=== PATIENT | male | born 1970 | race Caucasian/White ===

== ENCOUNTER → 2017-09-02 | Outpatient (CLI) | payer BC ==
[2013-05-26 10:00] VITALS: BP 112/53
[~2017-09-02] MED LIST: LANTUS100 U/ML SQ; NOVOLIN R100 U/ML; [UNRECOGNIZED DRUG - OTHER]
== END ==
LOC: LAB 17:09
DX: R19.7 Diarrhea, unspecified (principal)

== ENCOUNTER 2019-12-11 19:09 | Emergency (ER) | payer BC ==
[~2019-12-11] VITALS: Ht 167.6 cm; Wt 62.7 kg
[2019-12-11] MEDS ORDERED: NOVOLOG 100U100 U/ML SQ (19:25)
[2019-12-11] MEDS ORDERED: LANTUS PEN100 U/ML SQ (19:26)
[2019-12-11 19:41] LABS: EOS # 0.1 (0.04-0.40); EOS % 1.3 % (0.0-4.0); LYMPH# 0.8 (1.50-4.00); MEAN CELL VOLUME 89 fl (78-100); MEAN CORPUSCULAR HEMOGLOBIN 32 pg (27-31); MEAN CORPUSCULAR HGB CONC 36 g/dL (33-37); MEAN PLATELET VOLUME 8.7 fl (7.4-10.4); MONO # 0.7 (0.20-0.80); NEU # 4.5 (1.40-6.50); PLATELET COUNT 203 K/mm3 (130-400); RED BLOOD COUNT 4.06 M/mm3 (4.20-5.60); RED CELL DISTRIBUTION WIDTH 12.8 % (11.5-14.5); WHITE BLOOD COUNT 6.1 K/mm3 (4.8-10.8)
[2019-12-11 19:49] LABS: ALBUMIN 4.2 g/dL (3.5-5.0); POTASSIUM 3.6 mmol/L (3.5-5.1); SODIUM 140 mmol/L (136-145)
[2019-12-11 19:50] LABS: CALCIUM 8.4 mg/dL (8.3-10.5)
[2019-12-11 19:51] LABS: GLUCOSE 171 mg/dL (75-110); TOTAL PROTEIN 6.6 g/dL (6.4-8.3)
[2019-12-11 19:52] LABS: CARBON DIOXIDE 25 mmol/L (22-29)
[2019-12-11 19:53] LABS: TOTAL BILIRUBIN 1.6 mg/dL (0.2-1.2)
[2019-12-11 19:56] LABS: AST-SGOT 19 U/L (5-34)
[2019-12-11 19:58] LABS: ALT/SGPT 22 U/L (0-55)
[2019-12-11 20:04] LABS: TROPONIN-I < 0.03 ng/mL (<0.030)
[2019-12-11 22:35] VITALS: BP 129/78
== END 2019-12-11 22:35 | disposition home or self-care (01) ==
LOC: ED 19:09
PROVIDERS: Nurse Practitioner Primary Care
DX: J11.1 Influenza due to unidentified influenza virus with other respiratory manifestations (principal); E10.9 Type 1 diabetes mellitus without complications; Z88.0 Allergy status to penicillin

== ENCOUNTER 2020-12-01 11:17 | Emergency (ER) | payer BC ==
[~2020-12-01 11:17] MED LIST changes: +LANTUS PEN100 U/ML SQ; +NOVOLOG 100U100 U/ML SQ
[2020-12-01 13:14] VITALS: BP 127/97
== END 2020-12-01 12:48 | disposition home or self-care (01) ==
LOC: ED 11:17
DX: S93.511A Sprain of interphalangeal joint of right great toe, initial encounter (principal); E10.9 Type 1 diabetes mellitus without complications; Z88.0 Allergy status to penicillin; Z79.4 Long term (current) use of insulin; W00.0XXA Fall on same level due to ice and snow, initial encounter; Y92.009 Unspecified place in unspecified non-institutional (private) residence as the place of occurrence of the external cause
CPT/HCPCS: L4386

== ENCOUNTER 2021-11-22 16:32 | Emergency (ER) | payer BC ==
[~2021-11-22] VITALS: Ht 175.3 cm; Wt 61.4 kg
[2021-11-22 18:26] VITALS: BP 122/78
== END 2021-11-22 18:27 | disposition home or self-care (01) ==
LOC: ED 16:32
DX: S82.64XA Nondisplaced fracture of lateral malleolus of right fibula, initial encounter for closed fracture (principal); E10.9 Type 1 diabetes mellitus without complications; X50.1XXA Overexertion from prolonged static or awkward postures, initial encounter; Y93.K1 Activity, walking an animal; Y99.0 Civilian activity done for income or pay

== ENCOUNTER 2024-08-07 13:30 | Emergency (ER) | payer BC ==
[~2024-08-07] VITALS: Ht 167.6 cm; Wt 64.5 kg
[2024-08-07 13:35] VITALS: BP 119/81
[2024-08-07] MEDS ORDERED: LEVEMIR100 U/M1 SQ (13:57)
== END 2024-08-07 14:43 | disposition home or self-care (01) ==
LOC: ED 13:30
DX: E10.649 Type 1 diabetes mellitus with hypoglycemia without coma (principal)

== ENCOUNTER → 2024-11-02 | Outpatient (CLI) | payer BC ==
[~2024-11-02] MED LIST changes: +LEVEMIR100 U/M1 SQ
== END ==
LOC: RAD 09:55
DX: M19.011 Primary osteoarthritis, right shoulder (principal); W19.XXXA Unspecified fall, initial encounter; Z98.890 Other specified postprocedural states

== ENCOUNTER 2024-11-09 23:10 | Emergency (ER) | payer BC ==
[~2024-11-09] VITALS: Ht 167.6 cm; Wt 62.3 kg
[2024-11-09 23:50] VITALS: BP 111/65
== END 2024-11-09 23:50 | disposition home or self-care (01) ==
LOC: ED 23:10
DX: T18.0XXA Foreign body in mouth, initial encounter (principal); E10.40 Type 1 diabetes mellitus with diabetic neuropathy, unspecified; W44.9XXA Unspecified foreign body entering into or through a natural orifice, initial encounter